=== PATIENT | male | born 1930 | race Caucasian/White ===

== ENCOUNTER 2017-05-01 18:18 | Inpatient (IN) | payer MEDICARE ==
[~2017-05-01] VITALS: Ht 175.3 cm; Wt 81.0 kg
[2017-05-01 19:21] LABS: BASOPHILS % (AUTO) 0.1 % (0-1); EOSINOPHILS % (AUTO) 0 % (0-6); HEMATOCRIT 42.8 % (42.0-52.0); HEMOGLOBIN 14.5 g/dl (14.0-17.9); LYMPHOCYTES # (AUTO) 0.3 X10'3 (1.1-4.8); LYMPHOCYTES % (AUTO) 3.5 % (21-51); MEAN CORPUSCULAR HEMOGLOBIN 36.8 PG (27.0-31.0); MEAN CORPUSCULAR HGB CONC 33.9 % (33.0-36.5); MEAN CORPUSCULAR VOLUME 108.6 FL (78-98); MEAN PLATELET VOLUME 7.9 FL (7.4-10.4); MONOCYTES # (AUTO) 0.8 X10'3 (0-0.9); MONOCYTES % (AUTO) 8.1 % (2-12); NEUTROPHILS # (AUTO) 8.2 X10'3 (1.8-7.7); NEUTROPHILS % (AUTO) 88.3 % (42-75); PLATELET COUNT 196 X10'3 (140-440); RED BLOOD COUNT 3.94 X10'6 (4.70-6.10); RED CELL DISTRIBUTION WIDTH 15.2 % (11.5-14.5); WHITE BLOOD COUNT 9.3 X10'3 (4.5-11.0)
[2017-05-01 19:23] LABS: INR 1.2 INR; PARTIAL THROMBOPLASTIN TIME 30 SECONDS (22-32); PROTHROMBIN TIME 12.1 SECONDS (9.0-12.0)
[2017-05-01 19:29] LABS: ALANINE AMINOTRANSFERASE 101 U/L (12-78); ALBUMIN/GLOBULIN RATIO 0.9 (1.1-1.5); ALKALINE PHOSPHATASE 67 IU/L (46-116); ANION GAP 16 (8-16); ASPARTATE AMINO TRANSFERASE 183 U/L (10-37); BILIRUBIN,TOTAL 1.7 MG/DL (0.1-1.0); BLOOD UREA NITROGEN 34 MG/DL (7-18); BUN/CREATININE RATIO 31.8 (5.4-32.0); CHLORIDE 110 MMOL/L (99-107); CREATININE 1.07 MG/DL (0.60-1.10); GLUCOSE 125 MG/DL (70-104); POTASSIUM 3.9 MMOL/L (3.5-5.1); SODIUM 148 MMOL/L (135-145); TOTAL PROTEIN 6.4 G/DL (6.4-8.2); eGFR 66 ML/MIN
[2017-05-01] MEDS ORDERED: furosemide 10 MG/1 ML 10ml inj IV ONE (19:40)
[2017-05-01] MEDS ORDERED: normal saline 1000ml 1,000 ML IV SCH (20:34)
[2017-05-01] MEDS ORDERED: acetaminophen 325mg tablet PO PRN (20:35)
[2017-05-01] MEDS ORDERED: heparin 10,000 units/1 ML INJ IV PRN (20:35)
[2017-05-01] MEDS ORDERED: heparin 10,000 units/1 ML INJ IV ONE (20:35)
[2017-05-01] MEDS ORDERED: diphenhydrAMINE 50 mg/ml inj IV PRN (20:35)
[2017-05-01] MEDS ORDERED: metoclopramide 5 mg/ml inj IV PRN (20:35)
[2017-05-01] MEDS ORDERED: magnesium hydroxide 30ml (MOM) UD suspension PO PRN (20:35)
[2017-05-01] MEDS ORDERED: LORazepam 2 mg/ml vial IV PRN (20:35)
[2017-05-01] MEDS ORDERED: HYDROmorphone 1 mg/ml syringe IV PRN ×2 (20:35)
[2017-05-01] MEDS ORDERED: haloperidol 5mg tablet PO PRN (20:35)
[2017-05-01] MEDS ORDERED: diphenhydrAMINE 25mg capsule PO PRN (20:35)
[2017-05-01] MEDS ORDERED: haloperidol lactate 5mg/ml inj IM PRN (20:35)
[2017-05-01] MEDS ORDERED: dextrose 50%-water 50ml dispensing syringe IV PRN (20:35)
[2017-05-01] MEDS ORDERED: mag hydrox/Alum hydrox/simeth 30ml oral suspension PO PRN (20:35)
[2017-05-01] MEDS ORDERED: HYDROcodone/acetaminophen 5mg/325mg tablet PO PRN (20:35)
[2017-05-01] MEDS ORDERED: LORazepam 1 MG tablet PO PRN (20:35)
[2017-05-01] MEDS ORDERED: thiamine inj. 100 MG in normal saline 100ml IV soln 100 ML IV ONE (20:35)
[2017-05-01] MEDS ORDERED: thiamine 100mg/ml 2ml inj. IV ONE (20:35)
[2017-05-01] MEDS ORDERED: ondansetron/PF 4mg/2ml inj IV PRN (20:35)
[2017-05-01] MEDS ORDERED: morphine sulfate 8 MG/ML SYRINGE IV PRN ×2 (20:35)
[2017-05-01] MEDS ORDERED: HYDROcodone/acetaminophen 10/325mg tab PO PRN (20:35)
[2017-05-01] MEDS ORDERED: bisacodyl 10mg suppository rectal RC PRN (20:35)
[2017-05-01 20:48] LABS: LIPASE 54 U/L (73-393); MAGNESIUM 1.7 MG/DL (1.5-2.4)
[2017-05-01] MEDS ORDERED: temazepam 15mg capsule PO PRN (21:00)
[2017-05-01 21:41] LABS: TOTAL CELLS COUNTED 100
[2017-05-01 21:42] LABS: ANISOCYTOSIS FEW; PLATELET ESTIMATE NORMAL; TOXIC GRANULATION 2+; TOXIC VACUOLATION FEW
[2017-05-01 23:23] VITALS: BP 151/82
[2017-05-02] VITALS (7 sets, daily range): BP systolic 119–154; BP diastolic 75–93
[2017-05-02 02:55] LABS: INR 1.2 INR; PROTHROMBIN TIME 12.1 SECONDS (9.0-12.0)
[2017-05-02] MEDS: folic acid 1mg tablet PO SCH (07:39)
[2017-05-02] MEDS: pantoprazole 40mg Tablet.DR PO SCH (07:40)
[2017-05-02] MEDS: multivitamins, therapeutics tablet PO SCH (07:40)
[2017-05-02] MEDS: thiamine 100mg tablet PO SCH (07:40)
[2017-05-02] MEDS: docusate sod 100mg capsule PO SCH ×2 (07:40→19:40)
[2017-05-02] MEDS: nitroGLYCERIN 0.1mg/hour patch TD SCH (07:45)
[2017-05-02] MEDS ORDERED: folic acid inj. 2 MG, thiamine inj. 100 MG, MVI, adult No.4 with vit. K 10 ML in dextro... IV SCH ×4 (08:00)
[2017-05-02] MEDS ORDERED: LATA2.5D2 RIGHTEYE (08:03)
[2017-05-02] MEDS ORDERED: VIT1CAPS46 PO (08:03)
[2017-05-02 08:20] LABS: BASOPHILS % (AUTO) 0.1 % (0-1); EOSINOPHILS % (AUTO) 0.3 % (0-6); HEMOGLOBIN 14.3 g/dl (14.0-17.9); LYMPHOCYTES # (AUTO) 0.4 X10'3 (1.1-4.8); LYMPHOCYTES % (AUTO) 4.5 % (21-51); MEAN CORPUSCULAR HEMOGLOBIN 37.3 PG (27.0-31.0); MEAN CORPUSCULAR HGB CONC 33.9 % (33.0-36.5); MEAN CORPUSCULAR VOLUME 109.8 FL (78-98); MEAN PLATELET VOLUME 8.1 FL (7.4-10.4); MONOCYTES # (AUTO) 0.7 X10'3 (0-0.9); MONOCYTES % (AUTO) 7.8 % (2-12); NEUTROPHILS # (AUTO) 7.7 X10'3 (1.8-7.7); NEUTROPHILS % (AUTO) 87.3 % (42-75); PLATELET COUNT 196 X10'3 (140-440); RED BLOOD COUNT 3.83 X10'6 (4.70-6.10); RED CELL DISTRIBUTION WIDTH 14.6 % (11.5-14.5); WHITE BLOOD COUNT 8.8 X10'3 (4.5-11.0)
[2017-05-02 08:24] LABS: ALANINE AMINOTRANSFERASE 104 U/L (12-78); ALBUMIN 2.8 G/DL (3.4-5.0); ALBUMIN/GLOBULIN RATIO 0.8 (1.1-1.5); ALKALINE PHOSPHATASE 67 IU/L (46-116); ANION GAP 11 (8-16); ASPARTATE AMINO TRANSFERASE 157 U/L (10-37); BILIRUBIN,TOTAL 1.7 MG/DL (0.1-1.0); BLOOD UREA NITROGEN 34 MG/DL (7-18); BUN/CREATININE RATIO 33.7 (5.4-32.0); CHLORIDE 110 MMOL/L (99-107); CREATININE 1.01 MG/DL (0.60-1.10); GLUCOSE 135 MG/DL (70-104); POTASSIUM 3.3 MMOL/L (3.5-5.1); SODIUM 148 MMOL/L (135-145); TOTAL CARBON DIOXIDE 27.2 MMOL/L (24-32); TOTAL PROTEIN 6.2 G/DL (6.4-8.2); eGFR 70 ML/MIN
[2017-05-02 08:25] LABS: AMYLASE 16 U/L (25-115); LIPASE 81 U/L (73-393); MAGNESIUM 1.7 MG/DL (1.5-2.4); PHOSPHORUS 3.5 MG/DL (2.3-4.5)
[2017-05-02] MEDS: aspirin 81mg tab.chew PO SCH (10:20)
[2017-05-02 15:05] LABS: ABG BASE EXCESS 3.4 mmol/L (-2.0-3.0); ABG HCO3 26.3 mmol/L (22.0-26.0); ABG PH (T) 7.494 (7.350-7.450); ABG PO2 (T) 68.1 mmHg (83-108); ALLEN'S TEST Positive; FCOHb 0.7 % (0.5-1.5); FMetHb 0.2 % (0.3-1.12); FO2Hb 93.2 % (94-100); TOTAL HEMOGLOBIN 15.3 G/dl (14.0-18.0)
[2017-05-02] MEDS: furosemide 40mg/4ml inj IV SCH (15:11)
[2017-05-02] MEDS ORDERED: potassium Cl 20 mEq SR tablet PO PRN (19:55)
[2017-05-02] MEDS ORDERED: potassium Cl 40MEQ/NS 500ml 500 ML IV PRN ×2 (19:55)
[2017-05-02] MEDS: potassium Cl 20 mEq SR tablet PO PRN (21:07)
[2017-05-03] MEDS: potassium Cl 20 mEq SR tablet PO PRN ×4 (01:34→19:59)
[2017-05-03 03:00] VITALS: BP 160/86
[2017-05-03 05:05] LABS: BASOPHILS % (AUTO) 0 % (0-1); EOSINOPHILS % (AUTO) 0 % (0-6); HEMOGLOBIN 14.1 g/dl (14.0-17.9); LYMPHOCYTES # (AUTO) 0.4 X10'3 (1.1-4.8); LYMPHOCYTES % (AUTO) 5.1 % (21-51); MEAN CORPUSCULAR HEMOGLOBIN 36.9 PG (27.0-31.0); MEAN CORPUSCULAR HGB CONC 33.7 % (33.0-36.5); MEAN CORPUSCULAR VOLUME 109.5 FL (78-98); MEAN PLATELET VOLUME 7.9 FL (7.4-10.4); MONOCYTES # (AUTO) 0.8 X10'3 (0-0.9); MONOCYTES % (AUTO) 10.1 % (2-12); NEUTROPHILS % (AUTO) 84.8 % (42-75); PLATELET COUNT 202 X10'3 (140-440); RED BLOOD COUNT 3.84 X10'6 (4.70-6.10); RED CELL DISTRIBUTION WIDTH 14.7 % (11.5-14.5); WHITE BLOOD COUNT 8.3 X10'3 (4.5-11.0)
[2017-05-03 05:19] LABS: INR 1.2 INR; PROTHROMBIN TIME 12.3 SECONDS (9.0-12.0)
[2017-05-03 05:28] LABS: ALANINE AMINOTRANSFERASE 117 U/L (12-78); ALBUMIN 2.7 G/DL (3.4-5.0); ALBUMIN/GLOBULIN RATIO 0.8 (1.1-1.5); ALKALINE PHOSPHATASE 70 IU/L (46-116); AMYLASE 16 U/L (25-115); ANION GAP 12 (8-16); ASPARTATE AMINO TRANSFERASE 112 U/L (10-37); BILIRUBIN,TOTAL 1.6 MG/DL (0.1-1.0); BLOOD UREA NITROGEN 34 MG/DL (7-18); BUN/CREATININE RATIO 32.1 (5.4-32.0); CHLORIDE 111 MMOL/L (99-107); CREATININE 1.06 MG/DL (0.60-1.10); GLUCOSE 129 MG/DL (70-104); LIPASE 84 U/L (73-393); MAGNESIUM 1.7 MG/DL (1.5-2.4); PHOSPHORUS 3.6 MG/DL (2.3-4.5); POTASSIUM 3.3 MMOL/L (3.5-5.1); SODIUM 151 MMOL/L (135-145); TOTAL CARBON DIOXIDE 27.6 MMOL/L (24-32); eGFR 66 ML/MIN
[2017-05-03 06:00] VITALS: BP 163/83
[2017-05-03] MEDS ORDERED: morphine sulfate 8 MG/ML SYRINGE IV PRN ×2 (07:45)
[2017-05-03] MEDS: docusate sod 100mg capsule PO SCH ×2 (08:00→19:59)
[2017-05-03] MEDS: folic acid 1mg tablet PO SCH (09:36)
[2017-05-03] MEDS: aspirin 81mg tab.chew PO SCH (09:36)
[2017-05-03] MEDS: multivitamins, therapeutics tablet PO SCH (09:37)
[2017-05-03] MEDS: nitroGLYCERIN 0.1mg/hour patch TD SCH (09:37)
[2017-05-03] MEDS: pantoprazole 40mg Tablet.DR PO SCH (09:37)
[2017-05-03] MEDS: thiamine 100mg tablet PO SCH (09:37)
[2017-05-03] MEDS: furosemide 40mg/4ml inj IV SCH (09:38)
[2017-05-03] MEDS ORDERED: FLU VACC QS2017-18 36MOS UP/PF 60 MCG/0.5 ML SYRINGE IMVAC ONE (10:00)
[2017-05-03] MEDS: albuterol 2.5 MG/3 ML nebule NEB PRN ×3 (11:51→20:23)
[2017-05-03 15:00] VITALS: BP 153/89
[2017-05-03] MEDS ORDERED: AMLO10TA PO (15:27)
[2017-05-03] MEDS ORDERED: ALLO300T2 PO (15:27)
[2017-05-03] MEDS ORDERED: OXYC-580 PO (15:28)
[2017-05-03] MEDS ORDERED: LOSA100T28 PO (15:28)
[2017-05-03] MEDS ORDERED: APIX5TAB3 PO (15:29)
[2017-05-03] MEDS: losartan 50mg tablet PO SCH (16:17)
[2017-05-03 19:00] VITALS: BP 124/83
[2017-05-03] MEDS: apixaban 5mg tablet PO SCH (19:59)
[2017-05-03] MEDS ORDERED: heparin, porcine 5000 units/ml vial SQ SCH (20:00)
[2017-05-03 23:00] VITALS: BP 128/69
[2017-05-04] MEDS: albuterol 2.5 MG/3 ML nebule NEB PRN (01:18)
[2017-05-04 03:00] VITALS: BP 148/92
[2017-05-04 05:13] LABS: BASOPHILS % (AUTO) 0 % (0-1); EOSINOPHILS % (AUTO) 0.3 % (0-6); HEMATOCRIT 40.2 % (42.0-52.0); HEMOGLOBIN 13.6 g/dl (14.0-17.9); LYMPHOCYTES # (AUTO) 0.5 X10'3 (1.1-4.8); LYMPHOCYTES % (AUTO) 7.7 % (21-51); MEAN CORPUSCULAR HEMOGLOBIN 37.3 PG (27.0-31.0); MEAN CORPUSCULAR HGB CONC 33.8 % (33.0-36.5); MEAN CORPUSCULAR VOLUME 110.5 FL (78-98); MEAN PLATELET VOLUME 7.7 FL (7.4-10.4); MONOCYTES # (AUTO) 0.8 X10'3 (0-0.9); NEUTROPHILS # (AUTO) 5.7 X10'3 (1.8-7.7); PLATELET COUNT 196 X10'3 (140-440); RED BLOOD COUNT 3.64 X10'6 (4.70-6.10)
[2017-05-04 05:42] LABS: INR 1.2 INR; PROTHROMBIN TIME 12.5 SECONDS (9.0-12.0)
[2017-05-04 06:00] VITALS: BP 141/79
[2017-05-04 06:05] LABS: ALANINE AMINOTRANSFERASE 123 U/L (12-78); ALBUMIN 2.5 G/DL (3.4-5.0); ALBUMIN/GLOBULIN RATIO 0.8 (1.1-1.5); ALKALINE PHOSPHATASE 63 IU/L (46-116); AMYLASE 19 U/L (25-115); ANION GAP 9 (8-16); ASPARTATE AMINO TRANSFERASE 98 U/L (10-37); BILIRUBIN,TOTAL 1.3 MG/DL (0.1-1.0); BLOOD UREA NITROGEN 30 MG/DL (7-18); BUN/CREATININE RATIO 29.4 (5.4-32.0); CALCIUM 8.7 MG/DL (8.5-10.1); CHLORIDE 108 MMOL/L (99-107); CREATININE 1.02 MG/DL (0.60-1.10); GLUCOSE 142 MG/DL (70-104); LIPASE 127 U/L (73-393); MAGNESIUM 1.5 MG/DL (1.5-2.4); PHOSPHORUS 2.9 MG/DL (2.3-4.5); SODIUM 144 MMOL/L (135-145); TOTAL CARBON DIOXIDE 27.3 MMOL/L (24-32); TOTAL PROTEIN 5.6 G/DL (6.4-8.2); eGFR 69 ML/MIN
[2017-05-04] MEDS: docusate sod 100mg capsule PO SCH ×2 (08:00→20:00)
[2017-05-04] MEDS: losartan 50mg tablet PO SCH (09:01)
[2017-05-04] MEDS: aspirin 81mg tab.chew PO SCH (09:01)
[2017-05-04] MEDS: furosemide 40mg/4ml inj IV SCH (09:01)
[2017-05-04] MEDS: folic acid 1mg tablet PO SCH (09:02)
[2017-05-04] MEDS: pantoprazole 40mg Tablet.DR PO SCH (09:02)
[2017-05-04] MEDS: multivitamins, therapeutics tablet PO SCH (09:02)
[2017-05-04] MEDS: amLODIPine 5mg tablet PO SCH (09:02)
[2017-05-04] MEDS: allopurinol 300 MG tablet PO SCH (09:02)
[2017-05-04] MEDS: thiamine 100mg tablet PO SCH (09:03)
[2017-05-04] MEDS: nitroGLYCERIN 0.1mg/hour patch TD SCH (09:03)
[2017-05-04] MEDS: apixaban 5mg tablet PO SCH ×2 (09:04→21:16)
[2017-05-04 11:00] VITALS: BP 130/76
[2017-05-04 15:00] VITALS: BP 129/76
[2017-05-04 16:55] LABS: ABG BASE EXCESS 3.6 mmol/L (-2.0-3.0); ABG HCO3 27.1 mmol/L (22.0-26.0); ABG OXYGEN SATURATION 96.6 % (95-98); ABG PH (T) 7.482 (7.350-7.450); ABG PO2 (T) 84.7 mmHg (83-108); ALLEN'S TEST Positive; FCOHb 0.7 % (0.5-1.5); FLOW 2 L/min; FMetHb 0.3 % (0.3-1.12); FO2Hb 95.6 % (94-100); TOTAL HEMOGLOBIN 13.8 G/dl (14.0-18.0)
[2017-05-04 19:00] VITALS: BP 129/70
[2017-05-04 23:00] VITALS: BP 118/69
[2017-05-05 03:00] VITALS: BP 128/76
[2017-05-05 06:00] VITALS: BP 111/68
[2017-05-05 07:08] LABS: BASOPHILS % (AUTO) 0.4 % (0-1); EOSINOPHILS # (AUTO) 0.1 X10'3 (0-0.9); EOSINOPHILS % (AUTO) 2.3 % (0-6); HEMATOCRIT 41.4 % (42.0-52.0); HEMOGLOBIN 13.9 g/dl (14.0-17.9); LYMPHOCYTES # (AUTO) 0.6 X10'3 (1.1-4.8); LYMPHOCYTES % (AUTO) 9.5 % (21-51); MEAN CORPUSCULAR HEMOGLOBIN 36.8 PG (27.0-31.0); MEAN CORPUSCULAR HGB CONC 33.6 % (33.0-36.5); MEAN CORPUSCULAR VOLUME 109.6 FL (78-98); MEAN PLATELET VOLUME 7.6 FL (7.4-10.4); MONOCYTES # (AUTO) 0.7 X10'3 (0-0.9); MONOCYTES % (AUTO) 11.1 % (2-12); NEUTROPHILS # (AUTO) 5.1 X10'3 (1.8-7.7); NEUTROPHILS % (AUTO) 76.7 % (42-75); PLATELET COUNT 204 X10'3 (140-440); RED BLOOD COUNT 3.78 X10'6 (4.70-6.10); RED CELL DISTRIBUTION WIDTH 14.7 % (11.5-14.5); WHITE BLOOD COUNT 6.6 X10'3 (4.5-11.0)
[2017-05-05 07:17] LABS: INR 1.2 INR; PROTHROMBIN TIME 12.4 SECONDS (9.0-12.0)
[2017-05-05 07:45] LABS: ALANINE AMINOTRANSFERASE 146 U/L (12-78); ALBUMIN 2.4 G/DL (3.4-5.0); ALBUMIN/GLOBULIN RATIO 0.8 (1.1-1.5); ALKALINE PHOSPHATASE 57 IU/L (46-116); AMYLASE 26 U/L (25-115); ANION GAP 7 (8-16); ASPARTATE AMINO TRANSFERASE 98 U/L (10-37); BILIRUBIN,TOTAL 1.2 MG/DL (0.1-1.0); BLOOD UREA NITROGEN 22 MG/DL (7-18); BUN/CREATININE RATIO 25.3 (5.4-32.0); CALCIUM 8.7 MG/DL (8.5-10.1); CHLORIDE 108 MMOL/L (99-107); CREATININE 0.87 MG/DL (0.60-1.10); GLUCOSE 122 MG/DL (70-104); LIPASE 205 U/L (73-393); MAGNESIUM 1.6 MG/DL (1.5-2.4); PHOSPHORUS 3.4 MG/DL (2.3-4.5); POTASSIUM 3.5 MMOL/L (3.5-5.1); SODIUM 145 MMOL/L (135-145); TOTAL CARBON DIOXIDE 30.4 MMOL/L (24-32); TOTAL PROTEIN 5.5 G/DL (6.4-8.2); eGFR 83 ML/MIN
[2017-05-05] MEDS: pantoprazole 40mg Tablet.DR PO SCH ×2 (07:54→07:59)
[2017-05-05] MEDS: furosemide 40mg/4ml inj IV SCH (07:56)
[2017-05-05] MEDS: apixaban 5mg tablet PO SCH ×2 (07:58→19:37)
[2017-05-05] MEDS: thiamine 100mg tablet PO SCH (07:58)
[2017-05-05] MEDS: multivitamins, therapeutics tablet PO SCH (07:58)
[2017-05-05] MEDS: docusate sod 100mg capsule PO SCH ×2 (07:58→19:37)
[2017-05-05] MEDS: folic acid 1mg tablet PO SCH (07:58)
[2017-05-05] MEDS: amLODIPine 5mg tablet PO SCH (07:58)
[2017-05-05] MEDS: losartan 50mg tablet PO SCH (07:58)
[2017-05-05] MEDS: nitroGLYCERIN 0.1mg/hour patch TD SCH (07:59)
[2017-05-05] MEDS: allopurinol 300 MG tablet PO SCH (07:59)
[2017-05-05] MEDS: aspirin 81mg tab.chew PO SCH (07:59)
[2017-05-05 11:00] VITALS: BP 116/45
[2017-05-05 15:00] VITALS: BP 120/72
[2017-05-05 19:00] VITALS: BP 144/75
[2017-05-05 23:00] VITALS: BP 120/71
[2017-05-06 03:00] VITALS: BP 123/73
[2017-05-06 05:20] LABS: BASOPHILS % (AUTO) 0.1 % (0-1); EOSINOPHILS # (AUTO) 0.2 X10'3 (0-0.9); EOSINOPHILS % (AUTO) 2.8 % (0-6); HEMATOCRIT 40.2 % (42.0-52.0); HEMOGLOBIN 13.3 g/dl (14.0-17.9); LYMPHOCYTES # (AUTO) 0.6 X10'3 (1.1-4.8); LYMPHOCYTES % (AUTO) 6.8 % (21-51); MEAN CORPUSCULAR HEMOGLOBIN 36.5 PG (27.0-31.0); MEAN CORPUSCULAR VOLUME 110.4 FL (78-98); MEAN PLATELET VOLUME 7.9 FL (7.4-10.4); MONOCYTES # (AUTO) 0.9 X10'3 (0-0.9); MONOCYTES % (AUTO) 11.2 % (2-12); NEUTROPHILS # (AUTO) 6.5 X10'3 (1.8-7.7); NEUTROPHILS % (AUTO) 79.1 % (42-75); PLATELET COUNT 211 X10'3 (140-440); RED BLOOD COUNT 3.64 X10'6 (4.70-6.10); RED CELL DISTRIBUTION WIDTH 13.9 % (11.5-14.5); WHITE BLOOD COUNT 8.2 X10'3 (4.5-11.0)
[2017-05-06 05:53] LABS: INR 1.2 INR; PROTHROMBIN TIME 12.8 SECONDS (9.0-12.0)
[2017-05-06 06:00] VITALS: BP 134/70
[2017-05-06 06:23] LABS: ALANINE AMINOTRANSFERASE 169 U/L (12-78); ALBUMIN 2.4 G/DL (3.4-5.0); ALBUMIN/GLOBULIN RATIO 0.8 (1.1-1.5); ALKALINE PHOSPHATASE 63 IU/L (46-116); AMYLASE 29 U/L (25-115); ANION GAP 6 (8-16); ASPARTATE AMINO TRANSFERASE 101 U/L (10-37); BILIRUBIN,TOTAL 1.2 MG/DL (0.1-1.0); BLOOD UREA NITROGEN 20 MG/DL (7-18); BUN/CREATININE RATIO 21.7 (5.4-32.0); CALCIUM 8.4 MG/DL (8.5-10.1); CHLORIDE 105 MMOL/L (99-107); CREATININE 0.92 MG/DL (0.60-1.10); GLUCOSE 129 MG/DL (70-104); LIPASE 249 U/L (73-393); MAGNESIUM 1.4 MG/DL (1.5-2.4); PHOSPHORUS 3.3 MG/DL (2.3-4.5); POTASSIUM 3.3 MMOL/L (3.5-5.1); SODIUM 144 MMOL/L (135-145); TOTAL CARBON DIOXIDE 32.9 MMOL/L (24-32); TOTAL PROTEIN 5.4 G/DL (6.4-8.2); eGFR 78 ML/MIN
[2017-05-06] MEDS ORDERED: potassium Cl 20 mEq SR tablet PO PRN (06:40)
[2017-05-06] MEDS ORDERED: magnesium 2GM in 50ml NS 50 ML IV PRN (06:40)
[2017-05-06] MEDS ORDERED: magnesium 4gm in 100ml NS 100 ML IV PRN (06:40)
[2017-05-06] MEDS ORDERED: potassium Cl 40MEQ/NS 500ml 500 ML IV PRN ×2 (06:40)
[2017-05-06] MEDS: docusate sod 100mg capsule PO SCH ×2 (07:37→20:58)
[2017-05-06] MEDS: furosemide 40mg/4ml inj IV SCH (08:34)
[2017-05-06] MEDS: losartan 50mg tablet PO SCH (08:35)
[2017-05-06] MEDS: apixaban 5mg tablet PO SCH ×2 (08:36→20:58)
[2017-05-06] MEDS: multivitamins, therapeutics tablet PO SCH (08:37)
[2017-05-06] MEDS: folic acid 1mg tablet PO SCH (08:37)
[2017-05-06] MEDS: amLODIPine 5mg tablet PO SCH (08:37)
[2017-05-06] MEDS: thiamine 100mg tablet PO SCH (08:38)
[2017-05-06] MEDS: allopurinol 300 MG tablet PO SCH (08:38)
[2017-05-06] MEDS: nitroGLYCERIN 0.1mg/hour patch TD SCH (08:39)
[2017-05-06] MEDS: aspirin 81mg tab.chew PO SCH (08:40)
[2017-05-06] MEDS: potassium Cl 20 mEq SR tablet PO PRN ×2 (08:41→15:17)
[2017-05-06] MEDS: magnesium Cl slow-release 64mg tablet PO PRN (08:41)
[2017-05-06] MEDS: pantoprazole 40mg Tablet.DR PO SCH (08:41)
[2017-05-06 11:00] VITALS: BP 116/71
[2017-05-06 15:00] VITALS: BP 113/67
[2017-05-06 19:00] VITALS: BP 119/64
[2017-05-06 23:00] VITALS: BP 104/64
[2017-05-07 03:00] VITALS: BP 116/74
[2017-05-07 06:00] VITALS: BP 129/68
[2017-05-07 06:09] LABS: MAGNESIUM 1.4 MG/DL (1.5-2.4); POTASSIUM 3.7 MMOL/L (3.5-5.1)
[2017-05-07] MEDS: multivitamins, therapeutics tablet PO SCH (08:22)
[2017-05-07] MEDS: magnesium Cl slow-release 64mg tablet PO PRN (08:22)
[2017-05-07] MEDS: docusate sod 100mg capsule PO SCH (08:22)
[2017-05-07] MEDS: losartan 50mg tablet PO SCH (08:22)
[2017-05-07] MEDS: aspirin 81mg tab.chew PO SCH (08:22)
[2017-05-07] MEDS: allopurinol 300 MG tablet PO SCH (08:22)
[2017-05-07] MEDS: folic acid 1mg tablet PO SCH (08:23)
[2017-05-07] MEDS: apixaban 5mg tablet PO SCH (08:23)
[2017-05-07] MEDS: thiamine 100mg tablet PO SCH (08:23)
[2017-05-07] MEDS: amLODIPine 5mg tablet PO SCH (08:23)
[2017-05-07] MEDS: furosemide 40mg/4ml inj IV SCH (08:23)
[2017-05-07] MEDS: nitroGLYCERIN 0.1mg/hour patch TD SCH (08:24)
[2017-05-07 11:00] VITALS: BP 120/63
== END 2017-05-07 13:50 | disposition home health service (06) | DRG 896 ==
LOC: ER 18:19 → ED HOLD 20:34 → PCU 3S 23:59
PROVIDERS: ADMIT Family Medicine; ATTEND Internal Medicine
DX: F10.229 Alcohol dependence with intoxication, unspecified (principal); G93.41 Metabolic encephalopathy; I50.33 Acute on chronic diastolic (congestive) heart failure; E46 Unspecified protein-calorie malnutrition; D68.9 Coagulation defect, unspecified; E87.0 Hyperosmolality and hypernatremia; B02.9 Zoster without complications; E83.42 Hypomagnesemia; I48.91 Unspecified atrial fibrillation; I24.9 Acute ischemic heart disease, unspecified; D64.9 Anemia, unspecified; G47.30 Sleep apnea, unspecified; I25.10 Atherosclerotic heart disease of native coronary artery without angina pectoris; J44.9 Chronic obstructive pulmonary disease, unspecified; N28.9 Disorder of kidney and ureter, unspecified; M10.9 Gout, unspecified; R74.0 Nonspecific elevation of levels of transaminase and lactic acid dehydrogenase [LDH]; Z98.61 Coronary angioplasty status; Z79.01 Long term (current) use of anticoagulants; Z88.0 Allergy status to penicillin; Z68.26 Body mass index [BMI] 26.0-26.9, adult
CPT/HCPCS: 36415; 36600; 71010; 80053; 82150; 82803; 82948; 83605; 83690; 83735; 83880; 84100; 84132; 84484; 85018; 85025; 85610; 85730; 87040; 87070; 92616; 93005; 93306; 94640; 94667; 94668; 94760; 99285; A4315; A6212; A6213; A6258; J1644; J1940; J3411; J3490; J7030; J7060